=== PATIENT | male | born 1960 | race Caucasian/White ===

== ENCOUNTER 2022-05-14 18:40 | Inpatient (IN) | payer OTHER ==
[~2022-05-14] VITALS: Ht 172.7 cm; Wt 62.6 kg
[2022-05-14] MEDS ORDERED: HYDROCODONE/APAP 5/325MG TABLET PO PRN (19:00)
[2022-05-14] MEDS ORDERED: MAG HYDROX/AL HYDROX/SIMETH 30 ML UDC PO PRN (19:00)
[2022-05-14] MEDS ORDERED: ZOLPIDEM TARTRATE 5 MG TABLET PO PRN (19:00)
[2022-05-14] MEDS ORDERED: MAGNESIUM HYDROXIDE 30 ML UDC PO PRN (19:00)
[2022-05-14] MEDS ORDERED: Z GUARD REMEDY 4 OZ OINT TP PRN (19:00)
[2022-05-14] MEDS ORDERED: ONDANSETRON HCL/PF 4 MG/2 ML VIAL IVP PRN (19:00)
[2022-05-14] MEDS ORDERED: ACETAMINOPHEN 325 MG TABLET PO PRN (19:00)
--- NOTE | 2022-05-14 23:05 | NUR ---
Received patient from [facility] alert and orientated X4 noted when being asked questions he will go off on a tanget, not answering my question. He does ramble on when talking. Noted he can ambulate he has 4 bags large of medication. Counted by YENIFER Loja the charge nurse and she will take to the Pharmacy come this early AM. He has 7 pkgs of cigerettes placed in plastic and in the drawer at the nursing office he has a wheelchair and a cane cell phones and chrgers. He is cooperative and independent upper denture in the mouth snack consumed 100% Refusing IV start /Refusing DVT device
[2022-05-14 23:10] VITALS: BP 120/72
[2022-05-15 00:39] VITALS: BP 120/77
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
[2022-05-15 07:09] LABS: BASOPHILS % (AUTO) 0.5 % (0.0-2.0); EOSINOPHILS % (AUTO) 3.3 % (0.0-6.0); HEMATOCRIT 40 % (39-51); HEMOGLOBIN 13.5 g/dL (13.5-17.5); LYMPHOCYTES # (AUTO) 0.8 K/uL (0.8-4.8); LYMPHOCYTES % (AUTO) 19.6 % (20.0-44.0); MEAN CORPUSCULAR HGB CONC 34 g/dl (31.0-36.0); MEAN CORPUSCULAR VOLUME 88 fL (80-96); MONOCYTES # (AUTO) 0.4 K/uL (0.1-1.30); MONOCYTES % (AUTO) 9.9 % (2.0-12.0); NEUTROPHILS # (AUTO) 2.6 K/uL (1.8-8.9); NEUTROPHILS % (AUTO) 66.7 % (43.0-81.0); PLATELET COUNT (AUTO) 166 K/uL (150-450); WHITE BLOOD COUNT (AUTO) 3.9 K/uL (4.3-11.0)
[2022-05-15 07:21] LABS: CALCIUM, SERUM 8.9 mg/dL (8.5-10.1); CREATININE 1.2 mg/dL (0.6-1.3); MAGNESIUM 2.2 mg/dL (1.8-2.4); PHOSPHORUS 3.2 mg/dL (2.5-4.9); POTASSIUM 3.3 mmol/L (3.5-5.1)
[2022-05-15 07:33] LABS: THYROID STIMULATING HORMONE 0.568 uIU/mL (0.358-3.74)
--- NOTE | 2022-05-15 07:50 | NUR ---
RN OPENING NOTE. RECEIVED PATIENT IN BED, AWAKE AND WATCHING TELEVISION. NO RESPIRATORY DISTRESS OR SOB REPORTED OR OBSERVED. NO C/O PAIN. PATIENT DOES NOT HAVE IV ACCESS, HE REFUSED. SAFETY MEASURES IN PLACE WITH BED IN LOWEST POSITION AND LOCKED. SIDERAILS UP X2 AND CALL LIGHT WITHIN REACH. WILL CONTINUE TO MONITOR.
[2022-05-15 08:00] VITALS: BP 120/76
[2022-05-15] MEDS ORDERED: POTASSIUM CHLORIDE 20 MEQ TAB.PRT.SR PO SCH (08:00)
[2022-05-15] MEDS: PANTOPRAZOLE 40 MG TABLET.DR PO SCH (08:31)
[2022-05-15] MEDS ORDERED: MORP30TA59 PO (09:22)
[2022-05-15] MEDS ORDERED: DOCU-141 PO (09:22)
[2022-05-15] MEDS ORDERED: VENL75CA62 PO (09:22)
[2022-05-15] MEDS ORDERED: TERA2CAP4 PO (09:22)
[2022-05-15] MEDS ORDERED: DOXY100C2 PO (09:22)
[2022-05-15] MEDS ORDERED: TRAM50TA2 PO (09:22)
[2022-05-15] MEDS ORDERED: MULT-465 PO (09:22)
[2022-05-15] MEDS ORDERED: LABE100T5 PO (09:22)
[2022-05-15] MEDS ORDERED: ALBU8.5H8 IH (09:22)
[2022-05-15] MEDS ORDERED: HYDR25TA4 PO (09:22)
[2022-05-15] MEDS ORDERED: TESTOSTERONE (09:22)
[2022-05-15] MEDS ORDERED: NICO-627 TD (09:22)
[2022-05-15] MEDS ORDERED: HYDR-3980 PO (09:22)
[2022-05-15] MEDS ORDERED: POLY17PO4 PO (09:22)
[2022-05-15] MEDS ORDERED: CHOL100043 PO (09:22)
[2022-05-15] MEDS ORDERED: ATOR40TA PO (09:22)
[2022-05-15 16:00] VITALS: BP 137/81
[2022-05-15] MEDS ORDERED: TRAMADOL HCL 50 MG TABLET PO PRN (18:30)
[2022-05-15] MEDS ORDERED: ALBUTEROL FS 2.5 MG/0.5 ML VIAL.NEB IH PRN (18:30)
--- NOTE | 2022-05-15 18:55 | NUR ---
RN CLOSING NOTE PATIENT A/O X4. REMAINED IN ROOM FOR MAJORITY OF SHIFT, HOWEVER OBSERVED IN WHEELCHAIR AT NURSING STATION FOR SHORT TIME. CONTINUES TO REFUSE IV ACCESS, HOWEVER COMPLIANT WITH MEDICATION ADMINISTRATION. PATIENT OBSERVED ON SHIFT SMOKING CIGARETTE IN ASSIGNED BATHROOM. CIGARETTE AND CHANNELER WERE BOTH CONFISCATED AND PLACED WITH PATIENT BELONGINGS AT NURSING STATION. BELONGING RESEARCHED FOR OTHER SUCH ITEMS, HOWEVER NOTHING WAS FOUND. PATIENT EDUCATED ON SEVERITY OF NOT SMOKING WITHIN THE HOSPITAL. PATIENT VERBALLY STATED THAT HE UNDERSTOOD, HOWEVER STILL REMAINED AGITATED. PATIENT REQUESTED AND RECEIVED SHOWER ON SHIFT. OBSERVED SLEEPING FOR REMAINDER OF SHIFT. NO RESPIRATORY DISTRESS OR SOB OBSERVED. NO C/O PAIN. SAFETY MEASURES REMAIN IN PLACE WITH BED IN LOWEST POSITION AND LOCKED. SIDERAIL UP X2, CALL LIGHT WITHIN REACH. WILL CONTINUE TO MONITOR.
[2022-05-15 20:00] VITALS: BP 115/64
[2022-05-15] MEDS ORDERED: MORPHINE SULFATE IR 15 MG TABLET PO PRN (20:00)
[2022-05-15] MEDS: TERAZOSIN HCL 1 MG CAPSULE PO SCH (21:22)
[2022-05-15] MEDS: ATORVASTATIN 40 MG TABLET PO SCH (21:22)
[2022-05-15] MEDS: HYDROCODONE/APAP 10/325MG TABLET PO PRN (21:23)
--- NOTE | 2022-05-15 23:44 | NUR ---
MS RN OPENING NOTES: RECEIVED PATIENT AWAKE IN BED, BED IN LOW POSITION CALL LIGHTS WITHIN REACH, NO COMPLAIN OF PAIN AND DISCOMFORT AT THIS TIME, ON ROOM AIR SATURATING WELL, PATIENT IS A/OX4 AMBULATORY ABLE TO MAKE NEEDS KNOWN, PATIENT KEPT CLEAN AND DRY ALL NEEDS MET WILL CONTINUE TO MONITOR.
[2022-05-16] MEDS: HYDROCODONE/APAP 10/325MG TABLET PO PRN ×3 (06:13→21:49)
--- NOTE | 2022-05-16 06:18 | NUR ---
MS RN CLOSING NOTES: PATIENT SLEEP IN BED COMFORTABLY, BE DIN LOW POSITION CALL LIGHTS WITHIN REACH, NO COMPLAIN OF PAIN AND DISCOMFORT AT THIS TIME, ON ROOM AIR SATURATING WELL, PATIENT KEPT CLEAN AND DRY ALL NEEDS MET ENDORSE TO INCOMING SHIFT.
[2022-05-16 06:56] LABS: BASOPHILS % (AUTO) 0.3 % (0.0-2.0); EOSINOPHILS % (AUTO) 2.9 % (0.0-6.0); HEMATOCRIT 42 % (39-51); LYMPHOCYTES # (AUTO) 0.7 K/uL (0.8-4.8); LYMPHOCYTES % (AUTO) 16.1 % (20.0-44.0); MEAN CORPUSCULAR HGB CONC 34 g/dl (31.0-36.0); MEAN CORPUSCULAR VOLUME 87 fL (80-96); MONOCYTES # (AUTO) 0.4 K/uL (0.1-1.30); MONOCYTES % (AUTO) 10.2 % (2.0-12.0); NEUTROPHILS # (AUTO) 3.1 K/uL (1.8-8.9); NEUTROPHILS % (AUTO) 70.5 % (43.0-81.0); PLATELET COUNT (AUTO) 153 K/uL (150-450); RED BLOOD CELL COUNT(AUTO) 4.78 MIL/uL (4.5-6.0); WHITE BLOOD COUNT (AUTO) 4.4 K/uL (4.3-11.0)
--- NOTE | 2022-05-16 07:15 | NUR ---
RN OPENING NOTES RECEIVED PATIENT IN BED AWAKE, A/O X4, VERBALLY RESPONSIVE NO SIGNS OF ACUTE DISTRESS NOTED. ON ROOM AIR, NO SOB NOTED, BREATHING EVEN AND UNLABORED. DENIES ANY PAIN AT THIS TIME. SAFETY MEASURE IN PLACE. BED IN LOWEST AND LOCKED POSITION, SIDE RAILS UP X2, CALL LIGHT PLACED WITHIN EASY REACH. WILL CONTINUE TO MONITOR PATIENT.
[2022-05-16 07:25] LABS: CALCIUM, SERUM 8.9 mg/dL (8.5-10.1); PHOSPHORUS 2.1 mg/dL (2.5-4.9); POTASSIUM 3.8 mmol/L (3.5-5.1)
[2022-05-16 07:34] LABS: MAGNESIUM 2.1 mg/dL (1.8-2.4)
[2022-05-16] MEDS: PANTOPRAZOLE 40 MG TABLET.DR PO SCH (07:58)
[2022-05-16] MEDS: VENLAFAXINE XR 75 MG CAP.SR.24H PO SCH (08:29)
[2022-05-16] MEDS: NICOTINE PATCH (14MG) 14 MG PATCH.TD24 TD SCH (08:29)
[2022-05-16] MEDS: POLYETHYLENE GLYCOL 3350 17 GM POWD.PACK PO SCH (08:29)
[2022-05-16] MEDS: CHOLECALCIFEROL 1,000 UNIT TABLET (VIT D3) PO SCH (08:29)
[2022-05-16] MEDS: MULTIVIT W/MINERALS 1 TAB TABLET PO SCH (08:29)
[2022-05-16] MEDS: DOCUSATE SODIUM 100 MG CAPSULE PO SCH (08:29)
[2022-05-16] MEDS: MORPHINE SULFATE SR 15 MG TABLET.SA PO SCH ×3 (08:31→17:17)
[2022-05-16] MEDS: HYDROCHLOROTHIAZIDE 25 MG TABLET PO SCH (09:21)
[2022-05-16] MEDS: LABETALOL HCL (100MG) 100 MG TABLET PO SCH ×2 (09:22→17:18)
[2022-05-16] MEDS ORDERED: K PHOS NEUTRAL 250 MG TABLET PO ONE (12:00)
--- NOTE | 2022-05-16 13:20 | NUR ---
RN NOTES NEW PERIPHERAL LINE INSERTED ON RIGHT ANTECUBITAL AREA #20G, WITH GOOD BLOOD RETURN, COVERED WITH TRANSPARENT DRESSING. SALINE LOCKED.
--- NOTE | 2022-05-16 14:54 | NUR ---
TEXT DR. VAUGHAN FOR MRI APPROVAL.
[2022-05-16] MEDS ORDERED: IV NS 0.9% 250 ML IV ONE (16:36)
[2022-05-16] MEDS ORDERED: CT SWABBABLE VALVE TRANS SET 1 EA INFUS.SET MC ONE (16:36)
[2022-05-16] MEDS ORDERED: IOHEXOL-300 100 ML VIAL IV ONE (16:36)
--- NOTE | 2022-05-16 16:40 | NUR ---
RN NOTES PATIENT PICKED UP FOR CT CHEST, ABD, PELVIS.
--- NOTE | 2022-05-16 17:00 | NUR ---
RN NOTES BACK FROM CT PROCEDURE.
--- NOTE | 2022-05-16 18:49 | NUR ---
RN CLOSING NOTES PATIENT IN BED AWAKE, A/O X4, VERBALLY RESPONSIVE NO SIGNS OF ACUTE DISTRESS NOTED. REMAINS STABLE ON ROOM AIR, NO SOB NOTED, BREATHING EVEN AND UNLABORED. MEDICATED FOR PAIN ORDERED. ALL DUE MEDS GIVEN, TOLERATED WELL. IV ACCESS ON RIGHT AC #20G, INTACT AND PATENT, SALINE LOCKED. SAFETY MEASURE MAINTAINED. BED IN LOWEST AND LOCKED POSITION, SIDE RAILS UP X2, CALL LIGHT PLACED WITHIN EASY REACH. WILL ENDORSE TO NEXT SHIFT FOR CONTINUITY OF CARE.
--- NOTE | 2022-05-16 19:41 | NUR ---
MS RN OPENING NOTES: RECEIVED PATIENT SLEEP IN BED COMFORTABLY, AROUSABLE TO VERBAL STIMULI, BE DIN LOW POSITION CALL LIGHTS WITHIN REACH, ON ROOM AIR SATURATING WELL PATIENT IS A/OX4 AMBULATORY ON MONITORING, WITH IV LINE AT RAC#20SL, PATIENT KEPT CLEAN AND DRY ALL NEEDS MET WILL CONTINUE TO MONITOR.
[2022-05-16 20:00] VITALS: BP 125/50
[2022-05-16 20:55] VITALS: BP 125/50
[2022-05-16] MEDS: ATORVASTATIN 40 MG TABLET PO SCH (21:48)
[2022-05-16] MEDS: TERAZOSIN HCL 1 MG CAPSULE PO SCH (21:48)
[2022-05-17] MEDS: HYDROCODONE/APAP 10/325MG TABLET PO PRN ×2 (03:39→21:43)
--- NOTE | 2022-05-17 06:27 | NUR ---
RN CLOSING NOTES: PATIENT SLEEP IN BED COMFORTABLY, RESPONSIVE TO VERBAL STIMULI, BED IN LOW POSITION CALL LIGHTS WITHIN REACH, NO COMPLAIN OF PAIN AND DISCOMFORT AT THIS TIME, ON PAIN MANAGEMENT, ON ROOM AIR SATURATING WELL, PATIENT IS A/OX4 ABLE TO MAKE NEEDS KNOWN ON NPO, KEPT CLEAN AND DRY ALL NEEDS MET ENDORSE TO INCOMING SHIFT.
[2022-05-17 06:44] LABS: CALCIUM, SERUM 8.8 mg/dL (8.5-10.1); MAGNESIUM 1.8 mg/dL (1.8-2.4); PHOSPHORUS 3.9 mg/dL (2.5-4.9); POTASSIUM 3.2 mmol/L (3.5-5.1)
--- NOTE | 2022-05-17 07:15 | NUR ---
RN OPENING NOTES RECEIVED PATIENT IN BED AWAKE, A/O X4, VERBALLY RESPONSIVE, NO SIGNS OF ACUTE DISTRESS NOTED. ON ROOM AIR, NO SOB NOTED, BREATHING EVEN AND UNLABORED. WITH IV ACCESS ON RIGHT AC #20G, INTACT AND PATENT, SALINE LOCKED. SAFETY MEASURE MAINTAINED. BED IN LOWEST AND LOCKED POSITION, SIDE RAILS UP X2, CALL LIGHT PLACED WITHIN EASY REACH. WILL CONTINUE TO MONITOR PATIENT.
[2022-05-17 07:23] LABS: BASOPHILS % (AUTO) 0.7 % (0.0-2.0); EOSINOPHILS % (AUTO) 4.6 % (0.0-6.0); HEMATOCRIT 37 % (39-51); HEMOGLOBIN 12.6 g/dL (13.5-17.5); LYMPHOCYTES % (AUTO) 27.5 % (20.0-44.0); MEAN CORPUSCULAR HGB CONC 34 g/dl (31.0-36.0); MEAN CORPUSCULAR VOLUME 87 fL (80-96); MONOCYTES # (AUTO) 0.4 K/uL (0.1-1.30); MONOCYTES % (AUTO) 10.2 % (2.0-12.0); PLATELET COUNT (AUTO) 157 K/uL (150-450); RED BLOOD CELL COUNT(AUTO) 4.24 MIL/uL (4.5-6.0); WHITE BLOOD COUNT (AUTO) 3.5 K/uL (4.3-11.0)
[2022-05-17 08:00] VITALS: BP 108/68
[2022-05-17] MEDS: PANTOPRAZOLE 40 MG TABLET.DR PO SCH (08:31)
[2022-05-17] MEDS: POLYETHYLENE GLYCOL 3350 17 GM POWD.PACK PO SCH (08:31)
[2022-05-17] MEDS: HYDROCHLOROTHIAZIDE 25 MG TABLET PO SCH (08:32)
[2022-05-17] MEDS: VENLAFAXINE XR 75 MG CAP.SR.24H PO SCH (08:32)
[2022-05-17] MEDS: MULTIVIT W/MINERALS 1 TAB TABLET PO SCH (08:32)
[2022-05-17] MEDS: NICOTINE PATCH (14MG) 14 MG PATCH.TD24 TD SCH (08:32)
[2022-05-17] MEDS: DOCUSATE SODIUM 100 MG CAPSULE PO SCH (08:32)
[2022-05-17] MEDS: CHOLECALCIFEROL 1,000 UNIT TABLET (VIT D3) PO SCH (08:32)
[2022-05-17] MEDS: MORPHINE SULFATE SR 15 MG TABLET.SA PO SCH ×3 (08:33→17:13)
[2022-05-17] MEDS: LABETALOL HCL (100MG) 100 MG TABLET PO SCH ×2 (08:34→17:00)
--- NOTE | 2022-05-17 09:11 | NUR ---
SS consult requested for homelessness. SW will follow up at a later time.
--- NOTE | 2022-05-17 09:28 | NUR ---
RN NOTES PATIENT PICKED UP FOR MRI OF T/L SPINE VIA W/C.
[2022-05-17 10:11] LABS: IRON, SERUM 58 ug/dl (50-175); TOTAL IRON BINDING CAPACITY 351 ug/dl (250-450)
[2022-05-17 10:26] LABS: FERRITIN 135 ng/mL (8-388)
[2022-05-17] MEDS ORDERED: POTASSIUM CHLORIDE 20 MEQ TAB.PRT.SR PO SCH (12:00)
[2022-05-17] MEDS: POTASSIUM CHLORIDE 20 MEQ TAB.PRT.SR PO SCH (12:43)
--- NOTE | 2022-05-17 14:14 | NUR ---
SS consult: SS Consult requested for drug use & homelessness. The pt. is a 62-year-old male patient who was admitted for bone cancer. Upon SS consult, the pt. is Alert & Oriented x 4 and makes some eye contact. The pt. appears unkempt with depressed mood & affect. Pt. has slurred speech possibly secondary to dentures. Per pt. he states he was recently kicked out of the recuperative care in [place] because he was found with illicit drugs. Pt. stated, someone gave them to me. SW provided homeless resources and pt. accepted them. Pt. signed homeless waiver and it was paced in the pt.s chart. SW explored pt.s mental health. Pt. states he has been diagnosed with Depression in the past and is currently not on any medications. Pt. denies SI/ HI and denies hallucinations. SW explored pt.s living situation. JEAN explored pt.s mental health Hx. Patient denies any history or mental illness. JEAN explored pt.s drug & ETOH use. Pt. states he used to snort methamphetamine but has not used lately. Per pt. he has beer at times but does not feel it is a problem for him. JEAN used motivational interviewing and educated pt. on substance dependance. SW offered pt. drug rehab and he refused. Per pt. he is ambulatory and independent with all his ADLs. JEAN explored pt.s support system. Pt. states he has no support system as he lost communication with his siblings years ago and he has no children. Plan: JEAN discussed with CM who stated the insurance CM will help with finding placement for pt. JEAN provided homeless resources. Pt. signed homeless waiver and it was placed in the chart. Year-round shelters: [facility] [address] [place], [place] [phone] ; [facility] [address] [place] [address]; [facility] [id number] [facility]. [facility] [address] Hygiene: [employer] [facility]: [address] [place] ; [facility] [address] [facility] ; [facility] [address] . Food Resources: [place] [facility] at [facility]- [address]. [place]; Meet Each Need with Dignity ([employer]) [address]; [facility] [address] [facility]; [facility] [address] Mathias. Mental Health resources provided: [facility] [address] [place], [place] [address] ; [facility] [address] [facility] [address], [place], [place] [phone] ; [place] [facility] [address] [place], [place] [phone] ; [facility] [address] [place], [place] [address] Healthcare Clinics: [facility] [address] [facility], [address] [place]. [place] ; [facility] [address] [place] [address]; [facility] [address] [facility] [place] [address] [phone] Counseling--Outpatient [facility] [address], [address] [place], [place] [address] (Specializes in in-depth psychotherapy for emotional distress: anxiety, depression, interpersonal conflicts, life transitions, childhood abuse) [facility] [address] [place] [address] (Assist with solving problem marital difficulties, separation & divorce, aging parents, & grief, chronic & terminal illness) [facility] [address] [place] [address] (Deal with loss & grief, anxiety, marital difficulties) Homebound/Mental Health Services [address], [address] [place], [place] [address] (Provide in-home mental services to people who are incapable of leaving their homes) [facility] Elder[facility] Senior Service/[facility] [address] [place] [address] [facility] [address] [place] [address] PSYCHIATRIC OUTPATIENT SERVICES [facility] Partial Hospitalization and Intensive Outpatient Program (Managed Care and Guzmán Only)[address] [facility] [phone] [facility] Partial Hospitalization and Outpatient [address] [place], [place] [phone] [facility] Mental Health [place] Mwm[address] [address] [facility] [address] [place], [place] [phone] [facility] Partial Hospitalization and Outpatient Lpeltsc[address] eliThe Sheppard & Enoch Pratt HospitalesperanzaGALLANT, [phone] Substance Abuse resources provided included: [facility] Substance Abuse Self-Helpline ([facility]) ; [facility] [address] [facility]. [place] [phone] ; [facility] [address] [facility] [address] ; [facility] Rehabilitation Program [address] [facility] [phone] ; [facility] [address] [facility] [phone] ; [facility] Treatment [facility] [address] [facility] [address] ; [facility] [address] [facility] [phone] ; [facility] Substance Abuse Helpline(SAS[facility] ; [facility] ; [facility] [place]; [facility] [place]; [facility] [place]; [facility] Petr Chuy; [facility]; [facility] [place]; [facility]; [facility], [facility]. [facility] Dh[place]; Alcoholics Anonymous -[facility]; Arun ; Marijuana Anonymous -[facility]; Narcotics Anonymous www.na.org;
[2022-05-17] MEDS ORDERED: GADOTERATE MEGLUMINE 5 MMOL/10 ML VIAL IV ONE (14:54)
[2022-05-17 16:00] VITALS: BP 100/54
--- NOTE | 2022-05-17 18:53 | NUR ---
RN CLOSING NOTES PATIENT IN BED AWAKE, A/O X4, VERBALLY RESPONSIVE NO SIGNS OF ACUTE DISTRESS NOTED. REMAINS STABLE ON ROOM AIR, NO SOB NOTED, BREATHING EVEN AND UNLABORED. ALL DUE MEDS GIVEN, TOLERATED WELL. IV ACCESS ON RIGHT AC #20G, INTACT AND PATENT, SALINE LOCKED. SAFETY MEASURE MAINTAINED. BED IN LOWEST AND LOCKED POSITION, SIDE RAILS UP X2, CALL LIGHT PLACED WITHIN EASY REACH. WILL ENDORSE TO NEXT SHIFT FOR CONTINUITY OF CARE.
[2022-05-17 19:21] LABS: BILIRUBIN,URINE NEGATIVE (NEGATIVE); COLOR,URINE YELLOW (YELLOW); LEUKOCYTE ESTERASE ,URINE NEGATIVE (NEGATIVE); NITRITE, URINE NEGATIVE (NEGATIVE); PH,URINE 5.5 (5.0-8.0); PROTEIN,URINE NEGATIVE (NEGATIVE); UGLUCOSE NEGATIVE (NEGATIVE); UROBILINOGEN,URINE 0.2 EU/dL (0.2)
[2022-05-17 20:00] VITALS: BP 126/75
[2022-05-17] MEDS: ATORVASTATIN 40 MG TABLET PO SCH (21:24)
[2022-05-17] MEDS: TERAZOSIN HCL 1 MG CAPSULE PO SCH (21:24)
--- NOTE | 2022-05-17 21:43 | NUR ---
MS STREET NOTES C/O BACK PAIN 10/325MG,1 TAB PO ORDERED FOR PAIN 07/17.WILL CONTINUE TO MONITOR FOR RELIEF. Addendum: 05/18/22 at 0637 by THOMAS CONWAY RN NORCO 10/325MG,1 TAB PO GIVEN
--- NOTE | 2022-05-18 06:37 | NUR ---
MS RN NOTES PAIN MANAGEMENT EFFECTIVE,BACK PAIN IMPROVED,NO DISTRESS,CALL LIGHT IN REACH,NEEDS ATTENDED.
[2022-05-18 06:44] LABS: BASOPHILS % (AUTO) 0.6 % (0.0-2.0); EOSINOPHILS % (AUTO) 5.6 % (0.0-6.0); HEMATOCRIT 37 % (39-51); HEMOGLOBIN 12.5 g/dL (13.5-17.5); LYMPHOCYTES # (AUTO) 0.8 K/uL (0.8-4.8); LYMPHOCYTES % (AUTO) 22.9 % (20.0-44.0); MEAN CORPUSCULAR HGB CONC 34 g/dl (31.0-36.0); MEAN CORPUSCULAR VOLUME 87 fL (80-96); MONOCYTES # (AUTO) 0.4 K/uL (0.1-1.30); MONOCYTES % (AUTO) 10.1 % (2.0-12.0); NEUTROPHILS # (AUTO) 2.2 K/uL (1.8-8.9); NEUTROPHILS % (AUTO) 60.8 % (43.0-81.0); PLATELET COUNT (AUTO) 156 K/uL (150-450); RED BLOOD CELL COUNT(AUTO) 4.23 MIL/uL (4.5-6.0); WHITE BLOOD COUNT (AUTO) 3.6 K/uL (4.3-11.0)
[2022-05-18 06:49] LABS: CALCIUM, SERUM 8.7 mg/dL (8.5-10.1); MAGNESIUM 1.7 mg/dL (1.8-2.4); PHOSPHORUS 3.8 mg/dL (2.5-4.9); POTASSIUM 4.1 mmol/L (3.5-5.1)
--- NOTE | 2022-05-18 07:10 | NUR ---
MS RN CLOSING NOTE: PATIENT IN BED AWAKE, A/O X4, VERBALLY RESPONSIVE NO SIGNS OF ACUTE DISTRESS NOTED. REMAINS STABLE ON ROOM AIR, NO SOB NOTED, BREATHING EVEN AND UNLABORED. ALL DUE MEDS GIVEN, TOLERATED WELL. IV ACCESS ON RIGHT AC #20G, INTACT AND PATENT, SALINE LOCKED. SAFETY MEASURE MAINTAINED. BED IN LOWEST AND LOCKED POSITION, SIDE RAILS UP X2, CALL LIGHT PLACED WITHIN EASY REACH. WILL ENDORSE TO NEXT SHIFT FOR CONTINUITY OF CARE. Addendum: 05/18/22 at 1022 by SHOAIB MICHELLE RN MS RN OPENING NOTE: 1ST ENTRY INCORRECT. SEE CORRECT NOTE BELOW: RECEIVED PATIENT IN BED AWAKE, A/O X4, ON ROOM AIR, NO SIGNS OF ACUTE RESPIRATORY DISTRESS. BREATHING EVEN AND UNLABORED. ABLE TO MAKE NEEDS KNOWN. PT. HAS IV ACCESS ON RIGHT AC #20G, INTACT AND FLUSHING WELL WITH NO SIGNS OF INFECTION OR INFILTRATION, SALINE LOCKED. SAFETY MEASURE IN PLACE: BED IN LOWEST AND LOCKED POSITION, SIDE RAILS UP X2, CALL LIGHT AND BELONGINGS PLACED WITHIN EASY REACH. WILL CONTINUE TO MONITOR.
[2022-05-18] MEDS: PANTOPRAZOLE 40 MG TABLET.DR PO SCH (07:47)
[2022-05-18 08:00] VITALS: BP 122/71
[2022-05-18] MEDS: NICOTINE PATCH (14MG) 14 MG PATCH.TD24 TD SCH (08:19)
[2022-05-18] MEDS: POLYETHYLENE GLYCOL 3350 17 GM POWD.PACK PO SCH (08:19)
[2022-05-18] MEDS: POTASSIUM CHLORIDE 20 MEQ TAB.PRT.SR PO SCH (08:20)
[2022-05-18] MEDS: DOCUSATE SODIUM 100 MG CAPSULE PO SCH (08:22)
[2022-05-18] MEDS: HYDROCHLOROTHIAZIDE 25 MG TABLET PO SCH (08:23)
[2022-05-18] MEDS: MORPHINE SULFATE SR 15 MG TABLET.SA PO SCH ×3 (08:23→16:51)
[2022-05-18] MEDS: CHOLECALCIFEROL 1,000 UNIT TABLET (VIT D3) PO SCH (08:23)
[2022-05-18] MEDS: VENLAFAXINE XR 75 MG CAP.SR.24H PO SCH (08:24)
[2022-05-18] MEDS: MULTIVIT W/MINERALS 1 TAB TABLET PO SCH (08:24)
[2022-05-18] MEDS: LABETALOL HCL (100MG) 100 MG TABLET PO SCH ×2 (08:24→16:58)
[2022-05-18] MEDS ORDERED: MAGNESIUM OXIDE 400 MG TABLET PO ONE (10:00)
[2022-05-18 10:08] LABS: IMMUNOGLOBULIN A, SERUM 365 mg/dL (61-437); IMMUNOGLOBULIN G, SERUM 1387 mg/dL (603-1613); IMMUNOGLOBULIN M, SERUM 83 mg/dL (20-172)
[2022-05-18 11:07] LABS: *SPE A/G RATIO 0.8 (0.7-1.7); *SPE ALPHA-1-GLOBULIN 0.3 g/dL (0.0-0.4); *SPE BETA GLOBULIN 1.1 g/dL (0.7-1.3); *SPE M-SPIKE Not Observed g/dL (Not Observed)
[2022-05-18 12:00] VITALS: BP 126/72
--- NOTE | 2022-05-18 14:29 | NUR ---
MS RN NOTE: FAX[facility] RE[facility] FOR PATHOLOGY AND [facility]/DR. SEVERO ZEPEDA (ADDRESSED TO [facility]) PHONE: ; FAX: PER .GEORGINA DAVIS NP'S REQUEST. FAX CONFIRMATION PRINTED. WILL WAIT FOR REQUESTED DOCUMENTS AND WILL UPDATE DAGOBERTO DAVIS AND/OR DR. NIETO ONCE RECEIVED.
[2022-05-18 16:12] VITALS: BP 115/56
[2022-05-18] MEDS: ENSURE ENLIVE CHOC 237 ML CAN PO SCH (17:00)
--- NOTE | 2022-05-18 19:05 | NUR ---
RN NOTES: RECEIVED AWAKE ON BED, A/OX2-3, GIVEN INSTRUCTION REGARDING HIS SMOKING TIME,ORIENTED TO UNIT AND STAFF, KEPT CALL LIGHT WITHIN EASY REACH, ON ROOM AIR , NON LABORED BREATHING, ABLE TO AMBULATE USING WHEELCHAIR, RAC G#20 SL INTACT AND PATENT, STILL PENDING FOR OFB, AWAITING FOR HIS SNF PLACEMENT PER ENDORSEMENT. -FALL AND SAFETY PRECAUTION OBSERVED, ON CLOSE WATCH.
--- NOTE | 2022-05-18 19:12 | NUR ---
MS RN CLOSING NOTE: PATIENT REMAINS IN BED, AWAKE, WATCHING TV, A/O X4, ON ROOM AIR, BREATHING EVEN AND UNLABORED. ABLE TO VERBALIZE SIMPLE NEEDS KNOWN. PT. HAS IV ACCESS ON RIGHT AC #20G, SALINE LOCKED, PATENT AND FLUSHING WELL WITH NO REDNESS, INFLAMMATION OR SIGNS OF INFILTRATION ON SITE. STILL HAVEN'T RECEIVED PATHOLOGY & MEDICAL RECORDS FROM PT.'S PRIMARY ONCOLOGIST, DR. ZEPEDA. FAXED REQUEST RECEIVED BY DR. ZEPEDA'S OFFICE STAFF ARAVIND CONFIRMED OVER THE PHONE. SAFETY PRECAUTIONS MAINTAINED: BED IN LOWEST AND LOCKED POSITION, SIDE RAILS UP X2, CALL LIGHT AND BELONGINGS PLACED WITHIN EASY REACH. WILL ENDORSE CONTINUITY OF CARE TO WEIR FISHER RN.
[2022-05-18 20:00] VITALS: BP 104/62
--- NOTE | 2022-05-18 20:45 | NUR ---
RN NOTES: -ACCOMPANIED BY CONSTRUCTION MANAGER TO SMOKE OUTSIDE.NEEDS ATTENDED.
[2022-05-18] MEDS: TERAZOSIN HCL 1 MG CAPSULE PO SCH (21:32)
[2022-05-18] MEDS: ATORVASTATIN 40 MG TABLET PO SCH (21:32)
[2022-05-18] MEDS: HYDROCODONE/APAP 10/325MG TABLET PO PRN (22:07)
--- NOTE | 2022-05-18 22:08 | NUR ---
RN NOTES: COMPLAINED OF GENERALIZED PAIN 10/10, ASKING FOR PAIN MEDICATION TABLET, GIVEN, NON PHARMACOLOGIC INTERVENTION RENDERED, WARM BLANKET AND DIM LIT THE ROOM.
--- NOTE | 2022-05-18 23:50 | NUR ---
RN NOTES: -ABLE TO SLEEP AND REST, KEPT CALL LIGHT WITHIN EASYR EACH, CHECK AT SHORT INTERVALS.
--- NOTE | 2022-05-19 07:02 | NUR ---
RN NOTES: -COOPERATIVE TO CARE, CONVERSANT, SLEEP WELL IN THE NIGHT. -AFEBRILE,FECAL OCCULT WAS CANCELLED, ENDORSED TO F/U RECORDS TO OFFICE, FAXED YESTERDAY, F/U WITH CM FOR PLACEMENT, FOR PT EVAL, NO OTHER COMPLAINTS, ENDORSED FOR CONTINUITY OF CARE.
--- NOTE | 2022-05-19 07:18 | NUR ---
MS RN OPENING NOTE RECEIVED PATIENT IN BED, A/O X4. ON ROOM AIR, WITH EQUAL AND UNLABORED BREATHING. ABLE TO VERBALIZE NEEDS KNOWN. PT. HAVE IV ACCESS ON RIGHT AC #20G, ON SALINE LOCK, PATENT AND FLUSHING WELL. PATIENT ON CHRONIC PAIN MANAGEMENT RELATED TO BACK PAIN. SAFETY PRECAUTIONS MAINTAINED: BED IN LOWEST AND LOCKED POSITION, SIDE RAILS UP X2, CALL LIGHT WITHIN EASY REACH. WILL CONTINUE TO MONITOR PATIENT.
[2022-05-19] MEDS: PANTOPRAZOLE 40 MG TABLET.DR PO SCH (07:30)
[2022-05-19 08:00] VITALS: BP 121/72
[2022-05-19] MEDS: ENSURE ENLIVE CHOC 237 ML CAN PO SCH ×2 (08:00→17:00)
[2022-05-19] MEDS: DOCUSATE SODIUM 100 MG CAPSULE PO SCH (08:42)
[2022-05-19] MEDS: MULTIVIT W/MINERALS 1 TAB TABLET PO SCH (08:43)
[2022-05-19] MEDS: VENLAFAXINE XR 75 MG CAP.SR.24H PO SCH (08:43)
[2022-05-19] MEDS: MORPHINE SULFATE SR 15 MG TABLET.SA PO SCH ×3 (08:43→17:37)
[2022-05-19] MEDS: POTASSIUM CHLORIDE 20 MEQ TAB.PRT.SR PO SCH (08:43)
[2022-05-19] MEDS: CHOLECALCIFEROL 1,000 UNIT TABLET (VIT D3) PO SCH (08:44)
[2022-05-19] MEDS: LABETALOL HCL (100MG) 100 MG TABLET PO SCH ×2 (08:44→17:38)
[2022-05-19] MEDS: HYDROCHLOROTHIAZIDE 25 MG TABLET PO SCH (08:45)
[2022-05-19] MEDS: NICOTINE PATCH (14MG) 14 MG PATCH.TD24 TD SCH (08:45)
[2022-05-19] MEDS: POLYETHYLENE GLYCOL 3350 17 GM POWD.PACK PO SCH (08:45)
--- NOTE | 2022-05-19 09:50 | NUR ---
MS RN NOTE SEEN BY DR. JENNINGS. IN STABLE CONDITION.
[2022-05-19 16:00] VITALS: BP 127/61
--- NOTE | 2022-05-19 19:05 | NUR ---
MS RN CLOSING NOTE PATIENT IN BED, A/O X4. ON ROOM AIR, WITH EQUAL AND UNLABORED BREATHING. ABLE TO VERBALIZE NEEDS KNOWN. PT. HAVE IV ACCESS ON RIGHT AC #20G, ON SALINE LOCK, PATENT AND FLUSHING WELL. PATIENT ON CHRONIC PAIN MANAGEMENT RELATED TO BACK PAIN. SAFETY PRECAUTIONS MAINTAINED: BED IN LOWEST AND LOCKED POSITION, SIDE RAILS UP X2, CALL LIGHT WITHIN EASY REACH. ENDORSED PATIENT TO NEXT SHIFT FOR CONTINUITY OF CARE.
--- NOTE | 2022-05-19 20:20 | NUR ---
MS RN OPENING NOTE RECEIVED PATIENT IN BED, A/O X4. ON ROOM AIR,NO SIGN SOB/DISTRESS NOTED.BREATHING EVEN AND UNLABORED.HAVE IV ACCESS ON RIGHT AC #20G, ON SALINE LOCK, PATENT AND FLUSHING WELL.NO COMPLAINE OF PAIN AT THIS TIME.SAFETY PRECAUTIONS MAINTAINED: BED IN LOWEST AND LOCKED POSITION, SIDE RAILS UP X2, CALL LIGHT WITHIN EASY REACH. WILL CONTINUE TO MONITOR.
[2022-05-19] MEDS ORDERED: PROPOFOL 100 ML ONE (21:14)
[2022-05-19] MEDS: ATORVASTATIN 40 MG TABLET PO SCH (21:26)
[2022-05-19] MEDS: TERAZOSIN HCL 1 MG CAPSULE PO SCH (21:28)
--- NOTE | 2022-05-19 22:15 | NUR ---
RN NOTES PT COMPLAINED OF GEN.BODY PAIN 06/16.PRN NORCO 10/325MG WAS GIVEN.
[2022-05-19] MEDS: HYDROCODONE/APAP 10/325MG TABLET PO PRN (22:19)
[2022-05-19 23:05] VITALS: BP 127/79
--- NOTE | 2022-05-20 06:30 | NUR ---
MS RN CLOSING NOTES. PATIENT IN BED,A A/O X4. ON ROOM AIR,NO SIGN SOB/DISTRESS NOTED.BREATHING EVEN AND UNLABORED.HAVE IV ACCESS ON RIGHT AC #20G, ON SALINE LOCK, PATENT AND FLUSHING WELL.SAFETY PRECAUTIONS MAINTAINED: BED IN LOWEST AND LOCKED POSITION, SIDE RAILS UP X2, CALL LIGHT WITHIN EASY REACH. WILL ENDORSED TO NEXT SHIFT.
--- NOTE | 2022-05-20 07:19 | NUR ---
MS RN OPENING NOTE RECEIVED PATIENT IN BED, A/O X4. ON ROOM AIR, WITH EQUAL AND UNLABORED BREATHING. ABLE TO VERBALIZE NEEDS. PATIENT WITH IV ACCESS ON RIGHT AC #20G, ON SALINE LOCK, PATENT AND FLUSHING WELL. PATIENT ON CHRONIC PAIN MANAGEMENT RELATED TO BACK PAIN. SAFETY PRECAUTIONS MAINTAINED: BED IN LOWEST AND LOCKED POSITION, SIDE RAILS UP X2, CALL LIGHT WITHIN EASY REACH. WILL CONTINUE TO MONITOR PATIENT.
[2022-05-20] MEDS: PANTOPRAZOLE 40 MG TABLET.DR PO SCH ×2 (07:56→08:33)
[2022-05-20 08:00] VITALS: BP 130/73
[2022-05-20] MEDS: POTASSIUM CHLORIDE 20 MEQ TAB.PRT.SR PO SCH (08:32)
[2022-05-20] MEDS: ENSURE ENLIVE CHOC 237 ML CAN PO SCH ×2 (08:32→17:32)
[2022-05-20] MEDS: VENLAFAXINE XR 75 MG CAP.SR.24H PO SCH (08:33)
[2022-05-20] MEDS: DOCUSATE SODIUM 100 MG CAPSULE PO SCH (08:33)
[2022-05-20] MEDS: CHOLECALCIFEROL 1,000 UNIT TABLET (VIT D3) PO SCH (08:33)
[2022-05-20] MEDS: POLYETHYLENE GLYCOL 3350 17 GM POWD.PACK PO SCH (08:34)
[2022-05-20] MEDS: HYDROCHLOROTHIAZIDE 25 MG TABLET PO SCH (08:34)
[2022-05-20] MEDS: LABETALOL HCL (100MG) 100 MG TABLET PO SCH ×2 (08:34→17:32)
[2022-05-20] MEDS: MULTIVIT W/MINERALS 1 TAB TABLET PO SCH (08:34)
[2022-05-20] MEDS: MORPHINE SULFATE SR 15 MG TABLET.SA PO SCH ×3 (08:34→17:31)
--- NOTE | 2022-05-20 10:30 | NUR ---
MS RN NOTE SEEN BY DR. FREIRE IN STABLE CONDITION.
[2022-05-20] MEDS: NICOTINE PATCH (14MG) 14 MG PATCH.TD24 TD SCH (10:39)
--- NOTE | 2022-05-20 10:48 | NUR ---
MS RN NOTE HOSPITALIST RAD NOTIFIED PATIENT STILL SMOKES AT LEAST 4X A DAY, STILL TO GIVE NICOTINE PATCH PER ROLLER HELPER. IN STABLE CONDITION.
[2022-05-20 16:14] VITALS: BP 126/83
--- NOTE | 2022-05-20 17:04 | NUR ---
MS RN NOTE WITH INFILTRATED IVF, IV ACCESS REMOVED AND COVERED WITH DRY DRESSING. PROCEDURE TOLERATED WELL. PATIENT REFUSED TO HAVE IV ACCESS REINSERTED.
--- NOTE | 2022-05-20 19:00 | NUR ---
MS RN CLOSING NOTE PATIENT IN BED, A/O X4. ON ROOM AIR, WITH EQUAL AND UNLABORED BREATHING. ABLE TO VERBALIZE NEEDS. PATIENT REFUSED IV REINSERTION. PATIENT ON CHRONIC PAIN MANAGEMENT RELATED TO BACK PAIN. SAFETY PRECAUTIONS MAINTAINED: BED IN LOWEST AND LOCKED POSITION, SIDE RAILS UP X2, CALL LIGHT WITHIN EASY REACH. ENDORSED TO NEXT SHIFT FOR CONTINUITY OF CARE.
[2022-05-20 20:00] VITALS: BP 128/70
[2022-05-20] MEDS: ATORVASTATIN 40 MG TABLET PO SCH (21:14)
[2022-05-20] MEDS: TERAZOSIN HCL 1 MG CAPSULE PO SCH (21:15)
[2022-05-20] MEDS: HYDROCODONE/APAP 10/325MG TABLET PO PRN (21:58)
--- NOTE | 2022-05-20 22:00 | NUR ---
RN NOTES PT COMPLAINED OF GEN,BODY PAIN 8/10.PRN NORCO 10/325MG PO WAS GIVEN.
[2022-05-21 01:25] VITALS: BP 128/70
--- NOTE | 2022-05-21 06:47 | NUR ---
MS RN CLOSING NOTES. PATIENT IN BED,A A/O X4. ON ROOM AIR,NO SIGN SOB/DISTRESS NOTED.BREATHING EVEN AND UNLABORED.PT REFUSED TO REINSERT IVF.ALL MEDS GIVEN PO ORDERED.PATENT AND FLUSHING WELL.SAFETY PRECAUTIONS MAINTAINED: BED IN LOWEST AND LOCKED POSITION, SIDE RAILS UP X2, CALL LIGHT WITHIN EASY REACH. WILL ENDORSED TO NEXT SHIFT.
--- NOTE | 2022-05-21 07:00 | NUR ---
MS RN OPENING NOTES PATIENT LAYING IN BED, A/O X 4, ABLE TO MAKE NEEDS KNOWN. TOLERATING WELL ON ROOM AIR WITH NO S/S RESPIRATORY DISTRESS. NO IV ACCESS AT THIS TIME, MD AWARE. SAFETY MEASURES IN PLACE: BED IN LOWEST LOCKED POSITION, SIDE RAILS UP X 2, CALL LIGHT WITHIN REACH. WILL CONTINUE TO MONITOR.
[2022-05-21] MEDS: ENSURE ENLIVE CHOC 237 ML CAN PO SCH ×2 (07:42→16:11)
[2022-05-21 08:00] VITALS: BP 121/75
[2022-05-21] MEDS: LABETALOL HCL (100MG) 100 MG TABLET PO SCH ×2 (08:29→16:10)
[2022-05-21] MEDS: HYDROCHLOROTHIAZIDE 25 MG TABLET PO SCH (08:29)
[2022-05-21] MEDS: DOCUSATE SODIUM 100 MG CAPSULE PO SCH (08:30)
[2022-05-21] MEDS: MULTIVIT W/MINERALS 1 TAB TABLET PO SCH (08:31)
[2022-05-21] MEDS: POTASSIUM CHLORIDE 20 MEQ TAB.PRT.SR PO SCH (08:31)
[2022-05-21] MEDS: MORPHINE SULFATE SR 15 MG TABLET.SA PO SCH ×3 (08:31→16:14)
[2022-05-21] MEDS: NICOTINE PATCH (14MG) 14 MG PATCH.TD24 TD SCH (08:32)
[2022-05-21] MEDS: VENLAFAXINE XR 75 MG CAP.SR.24H PO SCH (08:32)
[2022-05-21] MEDS: POLYETHYLENE GLYCOL 3350 17 GM POWD.PACK PO SCH ×2 (08:32→08:39)
[2022-05-21] MEDS: CHOLECALCIFEROL 1,000 UNIT TABLET (VIT D3) PO SCH (08:33)
[2022-05-21 16:00] VITALS: BP 105/56
--- NOTE | 2022-05-21 18:31 | NUR ---
MS RN CLOSING NOTES PATIENT LAYING IN BED, A/O X 4, ABLE TO MAKE NEEDS KNOWN. TOLERATING WELL ON ROOM AIR WITH NO S/S RESPIRATORY DISTRESS. NO IV ACCESS AT THIS TIME, MD AWARE. SAFETY MEASURES IN PLACE: BED IN LOWEST LOCKED POSITION, SIDE RAILS UP X 2, CALL LIGHT WITHIN REACH. ALL NEEDS MET. WILL ENDORSE TO SEARCH MARKETING ANALYST FOR MONIQUE.
[2022-05-21 20:00] VITALS: BP 105/69
--- NOTE | 2022-05-21 20:34 | NUR ---
MS/TELE/RN AT INITIAL SHIFT ROUND, PATIENT WAS IN BED AWAKE, ALERT, ORIENTED, NO DISTRESS NOTED, CALL LIGHT IN REACH, WILL MONITOR.
[2022-05-21] MEDS: TERAZOSIN HCL 1 MG CAPSULE PO SCH (21:26)
[2022-05-21] MEDS: ATORVASTATIN 40 MG TABLET PO SCH (21:26)
[2022-05-21] MEDS: HYDROCODONE/APAP 10/325MG TABLET PO PRN (21:29)
--- NOTE | 2022-05-22 06:09 | NUR ---
MS/TELE/RN PATIENT IS STILL SLEEPING, APPEARS COMFORTABLE, NO SIGNS OF DISTRESS NOTED, CALL LIGHT IN REACH, ALL NEEDS ATTENDED AT THIS TIME, WILL CONTINUE TO MONITOR.
[2022-05-22] MEDS: HYDROCODONE/APAP 10/325MG TABLET PO PRN ×2 (06:27→22:11)
[2022-05-22] MEDS: PANTOPRAZOLE 40 MG TABLET.DR PO SCH (07:41)
[2022-05-22] MEDS: ENSURE ENLIVE CHOC 237 ML CAN PO SCH ×2 (07:49→17:42)
[2022-05-22 08:00] VITALS: BP 119/71
[2022-05-22] MEDS: DOCUSATE SODIUM 100 MG CAPSULE PO SCH ×2 (09:00→09:35)
[2022-05-22] MEDS: POLYETHYLENE GLYCOL 3350 17 GM POWD.PACK PO SCH ×2 (09:00→09:33)
[2022-05-22] MEDS: NICOTINE PATCH (14MG) 14 MG PATCH.TD24 TD SCH (09:33)
[2022-05-22] MEDS: MORPHINE SULFATE SR 15 MG TABLET.SA PO SCH ×3 (09:33→17:42)
[2022-05-22] MEDS: POTASSIUM CHLORIDE 20 MEQ TAB.PRT.SR PO SCH (09:34)
[2022-05-22] MEDS: CHOLECALCIFEROL 1,000 UNIT TABLET (VIT D3) PO SCH (09:34)
[2022-05-22] MEDS: LABETALOL HCL (100MG) 100 MG TABLET PO SCH ×2 (09:35→17:00)
[2022-05-22] MEDS: VENLAFAXINE XR 75 MG CAP.SR.24H PO SCH (09:36)
[2022-05-22] MEDS: HYDROCHLOROTHIAZIDE 25 MG TABLET PO SCH (09:42)
[2022-05-22] MEDS: MULTIVIT W/MINERALS 1 TAB TABLET PO SCH (09:45)
[2022-05-22 16:00] VITALS: BP 109/50
--- NOTE | 2022-05-22 19:00 | NUR ---
MS RN CLOSING NOTES PATIENT LAYING IN BED, A/O X 4, ABLE TO MAKE NEEDS KNOWN. TOLERATING WELL ON ROOM AIR WITH NO S/S RESPIRATORY DISTRESS. NO IV ACCESS AT THIS TIME, MD AWARE. SAFETY MEASURES IN PLACE: BED IN LOWEST LOCKED POSITION, SIDE RAILS UP X 2, CALL LIGHT WITHIN REACH. ALL NEEDS MET. WILL ENDORSE TO WASH WORKER FOR MONIQUE.
--- NOTE | 2022-05-22 19:30 | NUR ---
MS RN NOTES RECEIVED LAYING ON BED A/O X4,BREATHING REGULAR.NOT IN ANY FORM OF DISTRESS.AMBULATE WITH WALKER,NO IV ACCESS,MD AWARE,TAKING PO PILL FOR PAIN MANAGEMENT,DENIES ABDOMINAL PAIN AT THE MOMENT.CALL LIGHT IN REACH,NEEDS ANTICIPATED.
[2022-05-22 20:00] VITALS: BP 129/81
--- NOTE | 2022-05-22 20:45 | NUR ---
MS STREET NOTES PAIN MANAGEMENT C/O PAIN / ON PAIN SCALE,ON LEFT LEG,MOANS,RESTLESS,MEDICATED WITH MORPHINE 2MG IV ORDERED.VITAL SIGNS STABLE. Addendum: 05/23/22 at 0023 by THOMAS CONWAY RN WRONG ENTRY OF NOTES,NOT FOR THIS PATIENT
[2022-05-22] MEDS: TERAZOSIN HCL 1 MG CAPSULE PO SCH (21:57)
[2022-05-22] MEDS: ATORVASTATIN 40 MG TABLET PO SCH (21:57)
--- NOTE | 2022-05-22 22:11 | NUR ---
MS RN NOTES C/O ABDOMINAL PAIN 8/10 ON PAIN SCALE,NORCO 10/325MG 1 TAB PO GIVEN ORDERED.VITAL SIGNS STABLE.
--- NOTE | 2022-05-23 06:35 | NUR ---
MS RN NOTES SLEEP WELL AT NIGHT,BACK PAIN IMPROVED WITH NORCO,NO FALL,NO INJURY.CALL LIGHT IN REACH,NEEDS ATTENDED.
[2022-05-23] MEDS: PANTOPRAZOLE 40 MG TABLET.DR PO SCH (07:25)
[2022-05-23] MEDS: ENSURE ENLIVE CHOC 237 ML CAN PO SCH ×2 (07:26→16:16)
[2022-05-23] MEDS: POLYETHYLENE GLYCOL 3350 17 GM POWD.PACK PO SCH ×2 (09:00→09:07)
[2022-05-23] MEDS: VENLAFAXINE XR 75 MG CAP.SR.24H PO SCH ×2 (09:00→09:05)
[2022-05-23] MEDS: LABETALOL HCL (100MG) 100 MG TABLET PO SCH ×4 (09:00→16:22)
[2022-05-23] MEDS: NICOTINE PATCH (14MG) 14 MG PATCH.TD24 TD SCH (09:05)
[2022-05-23] MEDS: MULTIVIT W/MINERALS 1 TAB TABLET PO SCH (09:06)
[2022-05-23] MEDS: MORPHINE SULFATE SR 15 MG TABLET.SA PO SCH ×3 (09:07→16:16)
[2022-05-23] MEDS: CHOLECALCIFEROL 1,000 UNIT TABLET (VIT D3) PO SCH (09:07)
[2022-05-23] MEDS: POTASSIUM CHLORIDE 20 MEQ TAB.PRT.SR PO SCH (09:07)
[2022-05-23] MEDS: HYDROCHLOROTHIAZIDE 25 MG TABLET PO SCH (09:08)
[2022-05-23] MEDS: DOCUSATE SODIUM 100 MG CAPSULE PO SCH (09:09)
--- NOTE | 2022-05-23 19:00 | NUR ---
MS RN CLOSING NOTES PATIENT LAYING IN BED, A/O X 4, ABLE TO MAKE NEEDS KNOWN. TOLERATING WELL ON ROOM AIR WITH NO S/S RESPIRATORY DISTRESS. NO COMPLAINTS OF PAIN OR DISCOMFORT AT THIS TIME. NO IV ACCESS AT THIS TIME, MD AWARE. SAFETY MEASURES IN PLACE: BED IN LOWEST LOCKED POSITION, SIDE RAILS UP X 2, CALL LIGHT WITHIN REACH. ALL NEEDS MET. WILL ENDORSE TO STOCK SUPERVISOR FOR MONIQUE.
[2022-05-23] MEDS: HYDROCODONE/APAP 10/325MG TABLET PO PRN (19:49)
[2022-05-23 20:00] VITALS: BP 129/80
--- NOTE | 2022-05-23 20:00 | NUR ---
MS RN OPENING NOTE PATIENT AWAKE IN BED, ALERT/ORIENTED X 4, PT ABLE TO MAKE NEEDS KNOWN. PATIENT STABLE ON RA, NO S/S OF DISTRESS OR SOB NOTED, BREATHING EVEN AND UNLABORED. PATIENT C/O 8/10 BACK PAIN, NORCO 10-325 MG PO GIVEN ORDERED. NO IV ACCESS NOTED, MD AWARE PER DAY SHIFT NURSE. SAFETY MEASURES IN PLACE: CALL LIGHT WITHIN REACH, SIDE RAILS UP X 2, BED LOCKED IN LOWEST POSITION, PATIENT AMBULATORY WITH CANE AND WHEELCHAIR, PT HAS SMOKING PRIVILEGES WITH SUPER VISION PER DAY SHIFT NURSE. WILL CONTINUE TO MONITOR
[2022-05-23] MEDS: TERAZOSIN HCL 1 MG CAPSULE PO SCH (22:11)
[2022-05-23] MEDS: ATORVASTATIN 40 MG TABLET PO SCH (22:11)
--- NOTE | 2022-05-24 06:54 | NUR ---
MS RN CLOSING NOTE PATIENT AWAKE, ALERT/ORIENTED X 4, PT ABLE TO MAKE NEEDS KNOWN. PATIENT STABLE ON RA, NO S/S OF DISTRESS OR SOB NOTED, BREATHING EVEN AND UNLABORED. NO IV ACCESS NOTED, MD AWARE PER DAY SHIFT NURSE. MEDICATIONS GIVEN ORDERED, PT NEEDS MET THROUGHOUT SHIFT. PATIENT TOOK SHOWER LAST NIGHT, OBTAINED ORDER FROM HORSE SHOW JUDGE MD FOR OK TO SHOWER. SAFETY MEASURES IN PLACE: CALL LIGHT WITHIN REACH, SIDE RAILS UP X 2, BED LOCKED IN LOWEST POSITION, PATIENT AMBULATORY WITH CANE AND WHEELCHAIR, PT HAS SMOKING PRIVILEGES WITH SUPER [employer]ISION PER DAY SHIFT NURSE. WILL ENDORSE TO DAY SHIFT NURSE FOR CONTINUITY OF CARE
--- NOTE | 2022-05-24 07:13 | NUR ---
MS RN OPENING NOTES RECEIVED PATIENT AWAKE IN BED. PATIENT IS ALERT AND ORIENTED TIMES 4. NO PAIN NOTED. NO SOB NOTED. NO DISTRESS NOTED. NO IV ACCESS , MD AWARE. PATIENT ABLE TO MAKE NEEDS KNOWN. ALL SAFETY MEASURES IN PLACE. BED LOCKED IN THE LOWEST POSITION. CALL LIGHT AND TABLE IN EASY REACH. WILL CONTINUE TO MONITOR.
[2022-05-24] MEDS: PANTOPRAZOLE 40 MG TABLET.DR PO SCH (07:41)
[2022-05-24] MEDS: ENSURE ENLIVE CHOC 237 ML CAN PO SCH ×2 (07:42→16:34)
[2022-05-24 08:07] LABS: *ANA ANTI-CENTROMERE B AB <0.2 AI (0.0-0.9); *ANA ANTI-DNA(DS) AB, QN <1 IU/mL (0-9); *ANA ANTI-JO-1 <0.2 AI (0.0-0.9); *ANA ANTICHROMATIN ANTIBODY <0.2 AI (0.0-0.9); *ANA RNP ANTIBODIES <0.2 AI (0.0-0.9); *ANA SJOGREN'S ANTI-SS-A <0.2 AI (0.0-0.9); *ANA SJOGREN'S ANTI-SS-B <0.2 AI (0.0-0.9); *ANAANTI-SCLERODERMA-70 AB <0.2 AI (0.0-0.9); *ANASMITH AB <0.2 AI (0.0-0.9)
[2022-05-24] MEDS: DOCUSATE SODIUM 100 MG CAPSULE PO SCH (08:08)
[2022-05-24] MEDS: CHOLECALCIFEROL 1,000 UNIT TABLET (VIT D3) PO SCH (08:08)
[2022-05-24 08:09] VITALS: BP 125/74
[2022-05-24] MEDS: POTASSIUM CHLORIDE 20 MEQ TAB.PRT.SR PO SCH (08:09)
[2022-05-24] MEDS: MULTIVIT W/MINERALS 1 TAB TABLET PO SCH (08:09)
[2022-05-24] MEDS: VENLAFAXINE XR 75 MG CAP.SR.24H PO SCH (08:09)
[2022-05-24] MEDS: MORPHINE SULFATE SR 15 MG TABLET.SA PO SCH ×3 (08:09→16:24)
[2022-05-24] MEDS: LABETALOL HCL (100MG) 100 MG TABLET PO SCH ×2 (09:00→16:34)
[2022-05-24] MEDS: NICOTINE PATCH (14MG) 14 MG PATCH.TD24 TD SCH (09:00)
[2022-05-24] MEDS: HYDROCHLOROTHIAZIDE 25 MG TABLET PO SCH (09:00)
[2022-05-24] MEDS: POLYETHYLENE GLYCOL 3350 17 GM POWD.PACK PO SCH (09:00)
--- NOTE | 2022-05-24 10:33 | NUR ---
SS note: SS consult requested for pt. who stated he may want to leave AMA. [facility] who stated they are working on placement.SW met with pt. at beside. The pt. is alert& oriented x 4 and makes good eye contact. Pt. remained calm & cooperative throughout assessment. SW explained placement process and encourage pt. to stay at [facility] for possible placement. Pt. stated he discussed with MD and he will stay as he does not want to be homeless or risk negative health impacts. SW discussed new plan with patient's nurse who expressed understanding. SW will be available as needed.
[2022-05-24 16:25] VITALS: BP 133/73
--- NOTE | 2022-05-24 19:43 | NUR ---
MS RN CLOSING NOTES PATIENT AWAKE IN BED. PATIENT IS ALERT AND ORIENTED TIMES 4. NO PAIN NOTED. NO SOB NOTED. NO DISTRESS NOTED. NO IV ACCESS , MD AWARE. PATIENT ABLE TO MAKE NEEDS KNOWN.ALL DUE MEDS GIVEN ORDERED. ALL SAFETY MEASURES IN PLACE. BED LOCKED IN THE LOWEST POSITION. CALL LIGHT AND TABLE IN EASY REACH. WILL ENDORSE FOR MONIQUE.
[2022-05-24] MEDS: ATORVASTATIN 40 MG TABLET PO SCH (21:09)
[2022-05-24] MEDS: TERAZOSIN HCL 1 MG CAPSULE PO SCH (21:09)
[2022-05-24 22:42] VITALS: BP 144/92
[2022-05-25] MEDS: HYDROCODONE/APAP 10/325MG TABLET PO PRN ×2 (00:12→21:55)
--- NOTE | 2022-05-25 06:26 | NUR ---
MS RN CLOSING NOTES PATIENT IN BED SLEEPING.ON RM AIR LYNNE WELL.. NO SOB/ DISTRESS NOTED.ALL DUE MEDS GIVEN ORDER,PATIENT ABLE TO MAKE NEEDS KNOWN.ALL NEEDS ATTENDED. ALL SAFETY MEASURES IN PLACE. BED LOCKED IN THE LOWEST POSITION. CALL LIGHT AND TABLE IN EASY REACH. WILL ENDORSED TO NEXT SHIFT.
--- NOTE | 2022-05-25 07:05 | NUR ---
MS RN OPENING NOTES RECEIVED PATIENT AWAKE IN BED. PATIENT IS ALERT AND ORIENTED TIMES 4. NO PAIN NOTED. NO SOB NOTED. NO DISTRESS NOTED. ON ROOM AIR AND TOLERATING NO IV ACCESS , MD AWARE. PATIENT ABLE TO MAKE NEEDS KNOWN. USES WHEELCHAIR AND CANE FOR AMBULATION. WAITING FOR FACILITY PLACEMENT TO BE TRANSFERRED. ALL SAFETY MEASURES IN PLACE. BED LOCKED IN THE LOWEST POSITION. SIDE RAILS UP TIMES 2. CALL LIGHT AND TABLE IN EASY REACH. WILL CONTINUE TO MONITOR.
[2022-05-25] MEDS: PANTOPRAZOLE 40 MG TABLET.DR PO SCH (07:45)
[2022-05-25] MEDS: ENSURE ENLIVE CHOC 237 ML CAN PO SCH ×2 (07:54→16:40)
[2022-05-25 08:00] VITALS: BP 119/72
[2022-05-25] MEDS: DOCUSATE SODIUM 100 MG CAPSULE PO SCH (08:24)
[2022-05-25] MEDS: MULTIVIT W/MINERALS 1 TAB TABLET PO SCH (08:24)
[2022-05-25] MEDS: NICOTINE PATCH (14MG) 14 MG PATCH.TD24 TD SCH (08:25)
[2022-05-25] MEDS: POTASSIUM CHLORIDE 20 MEQ TAB.PRT.SR PO SCH (08:25)
[2022-05-25] MEDS: VENLAFAXINE XR 75 MG CAP.SR.24H PO SCH (08:25)
[2022-05-25] MEDS: MORPHINE SULFATE SR 15 MG TABLET.SA PO SCH ×3 (08:25→16:37)
[2022-05-25] MEDS: CHOLECALCIFEROL 1,000 UNIT TABLET (VIT D3) PO SCH (08:25)
[2022-05-25] MEDS: LABETALOL HCL (100MG) 100 MG TABLET PO SCH ×2 (08:26→16:38)
[2022-05-25] MEDS: HYDROCHLOROTHIAZIDE 25 MG TABLET PO SCH (08:26)
[2022-05-25] MEDS: POLYETHYLENE GLYCOL 3350 17 GM POWD.PACK PO SCH (08:56)
--- NOTE | 2022-05-25 08:57 | NUR ---
RN NOTES PATIENT REFUSED MIRALAX 17 MG. EXPLAINED THE BENEFITS OF THE MEDICATION , PATIENT STILL REFUSING.
[2022-05-25 16:00] VITALS: BP 133/79
--- NOTE | 2022-05-25 19:38 | NUR ---
RN OPENING NOTE PATIENT IS AWAKE IN BED. A/OX4. NO S/S OF DISTRESS, BREATHING W/O DIFFICULTY ON ROOM AIR. NO IV ACCESS - YOVANI SCOTT, NOTIFIED PER DAY SHIFT NURSE ENDORSEMENT. SAFETY MEASURES IN PLACE: BED LOCKED AND AT LOWEST POSITION, RAILS UP X2, CALL BEAL WITHIN REACH. WILL CONTINUE TO MONITOR PATIENT.
[2022-05-25 20:00] VITALS: BP 130/77
[2022-05-25] MEDS: ATORVASTATIN 40 MG TABLET PO SCH (21:53)
[2022-05-25] MEDS: TERAZOSIN HCL 1 MG CAPSULE PO SCH (21:55)
[2022-05-26] MEDS: HYDROCODONE/APAP 10/325MG TABLET PO PRN ×2 (03:23→19:51)
--- NOTE | 2022-05-26 06:38 | NUR ---
RN CLOSING NOTE PATIENT AWAKE IN BED. A/OX4. NO S/S OF DISTRESS, BREATHING W/O DIFFICULTY ON ROOM AIR. NO IV ACCESS NOTED IN MY OPENING NOTE FOR THIS SHIFT. SAFETY MEASURES IN PLACE: BED LOCKED AND AT LOWEST POSITION, RAILS UP X2, CALL BEAL WITHIN REACH. WILL ENDORSE TO NEXT SHIFT FOR MONIQUE.
--- NOTE | 2022-05-26 07:59 | NUR ---
RN OPENING NOTE PATIENT RECEIVED IN BED, AO X 4, ABLE TO RESPONDS ALL STIMULI. IN NO ACUTE DISTRESS NOTED. RESPIRATORY EVEN AND UNLABORED ON ROOM AIR. SKIN IS WARM TO TOUCH, KEEP CLEAN/DRY. KEPT ELEVATED HOB FOR ENSURE AIRWAY AND ASPIRATION PRECAUTION, ALSO LOWEST POSITION OF THE BED, S/R UP X 3, BED ALARM IS ON AT ALL THE TIMES. ALL SAFETY PRECAUTION APPLIED. CALL LIGHT WITHIN REACH, WILL CONTINUE TO MONITOR.
[2022-05-26 08:00] VITALS: BP 124/79
[2022-05-26 08:08] LABS: BASOPHILS % (AUTO) 0.5 % (0.0-2.0); HEMATOCRIT 36 % (39-51); HEMOGLOBIN 12.4 g/dL (13.5-17.5); LYMPHOCYTES # (AUTO) 1.1 K/uL (0.8-4.8); LYMPHOCYTES % (AUTO) 20.5 % (20.0-44.0); MEAN CORPUSCULAR HGB CONC 34 g/dl (31.0-36.0); MEAN CORPUSCULAR VOLUME 87 fL (80-96); MONOCYTES # (AUTO) 0.6 K/uL (0.1-1.30); MONOCYTES % (AUTO) 10.1 % (2.0-12.0); NEUTROPHILS # (AUTO) 3.6 K/uL (1.8-8.9); NEUTROPHILS % (AUTO) 64.9 % (43.0-81.0); PLATELET COUNT (AUTO) 218 K/uL (150-450); RED BLOOD CELL COUNT(AUTO) 4.21 MIL/uL (4.5-6.0); WHITE BLOOD COUNT (AUTO) 5.5 K/uL (4.3-11.0)
[2022-05-26] MEDS: PANTOPRAZOLE 40 MG TABLET.DR PO SCH (08:26)
[2022-05-26] MEDS: ENSURE ENLIVE CHOC 237 ML CAN PO SCH ×2 (08:26→17:01)
[2022-05-26] MEDS: POTASSIUM CHLORIDE 20 MEQ TAB.PRT.SR PO SCH (08:26)
[2022-05-26] MEDS: VENLAFAXINE XR 75 MG CAP.SR.24H PO SCH (08:26)
[2022-05-26] MEDS: NICOTINE PATCH (14MG) 14 MG PATCH.TD24 TD SCH (08:26)
[2022-05-26] MEDS: MULTIVIT W/MINERALS 1 TAB TABLET PO SCH (08:26)
[2022-05-26] MEDS: MORPHINE SULFATE SR 15 MG TABLET.SA PO SCH ×3 (08:27→17:01)
[2022-05-26] MEDS: CHOLECALCIFEROL 1,000 UNIT TABLET (VIT D3) PO SCH (08:27)
[2022-05-26] MEDS: POLYETHYLENE GLYCOL 3350 17 GM POWD.PACK PO SCH (08:29)
[2022-05-26] MEDS: HYDROCHLOROTHIAZIDE 25 MG TABLET PO SCH (08:29)
[2022-05-26] MEDS: DOCUSATE SODIUM 100 MG CAPSULE PO SCH (08:30)
[2022-05-26] MEDS: LABETALOL HCL (100MG) 100 MG TABLET PO SCH ×2 (08:35→17:01)
[2022-05-26 15:59] VITALS: BP 122/72
--- NOTE | 2022-05-26 18:00 | NUR ---
RN CLOSING NOTE PATIENT IN WHEEL CHAIR WATCHING TV. IN NO ACUTE DISTRESS NOTED. RESPIRATORY EVEN AND UNLABORED ON ROOM AIR. SKIN IS WARM TO TOUCH, KEEP CLEAN/DRY. KEPT ELEVATED HOB FOR ENSURE AIRWAY AND ASPIRATION PRECAUTION, BED IN LOWEST POSITION AND LOCK. BED ALARM IS ON AT ALL THE TIMES, WHILE PATIENT IS IN THE BED. ALL SAFETY MEASURED IN PLACED. CALL LIGHT WITHIN REACH, WILL ENDORSED TO NEXT SHIFT.
--- NOTE | 2022-05-26 19:20 | NUR ---
MS/RN OPENING NOTE RECEIVED PATIENT UP IN WHEELCHAIR. ALERT AND ORIENTED X 4. ABLE TO MAKE NEEDS KNOWN. DENIES PAIN AT THIS TIME. CONTINUES ON ROOM AIR WITH NO S/SX OF RESPIRATORY DISTRESS NOTED. NO IV ACCESS AT THIS TIME - MD AWARE. CONTINUES ON REGULAR DIET WITH NO S/SX OF ASPIRATION NOTED. PATIENT IS ABLE TO TRANSFER FROM BED TO WHEELCHAIR INDEPENDENTLY. CALL LIGHT WITHIN REACH. ASPIRATION, FALL AND SAFETY PRECAUTIONS MAINTAINED. ALL NEEDS ATTENDED TO AT THIS TIME.
--- NOTE | 2022-05-26 19:55 | NUR ---
MS/RN NOTE PATIENT WITH C/O GENERALIZED PAIN - ADMINISTERED PRN NORCO PER MD ORDER.
[2022-05-26 20:00] VITALS: BP 102/69
[2022-05-26] MEDS: ATORVASTATIN 40 MG TABLET PO SCH (22:17)
[2022-05-26] MEDS: TERAZOSIN HCL 1 MG CAPSULE PO SCH (22:17)
[2022-05-27] MEDS: HYDROCODONE/APAP 10/325MG TABLET PO PRN ×2 (01:55→21:17)
--- NOTE | 2022-05-27 02:04 | NUR ---
MS/RN NOTE PATIENT WITH C/O BACK PAIN 05/16 - ADMINISTERED PRN NORCO PER MD ORDERS.
[2022-05-27 04:00] VITALS: BP 119/60
--- NOTE | 2022-05-27 06:20 | NUR ---
MS/RN CLOSING NOTE PATIENT CURRENTLY SITTING UP IN WHEELCHAIR. ALERT AND ORIENTED X 4. ABLE TO MAKE NEEDS KNOWN. DENIES PAIN AT THIS TIME. CONTINUES ON ROOM AIR WITH NO S/SX OF RESPIRATORY DISTRESS NOTED. NO IV ACCESS AT THIS TIME - MD AWARE. CONTINUES ON REGULAR DIET WITH NO S/SX OF ASPIRATION NOTED. PATIENT IS ABLE TO TRANSFER FROM BED TO WHEELCHAIR INDEPENDENTLY. CALL LIGHT WITHIN REACH. ASPIRATION, FALL AND SAFETY PRECAUTIONS MAINTAINED. ALL NEEDS ATTENDED TO AT THIS TIME. WILL ENDORSE PLAN OF CARE TO ONCOMING SHIFT RN.
--- NOTE | 2022-05-27 07:30 | NUR ---
RN OPENING NOTE PATIENT RECEIVED UP IN WHEELCHAIR. A/0 X4. NO S/SX OF DISTRESS OR SOB OBSERVED. NO C/O PAIN. PATIENT REMAINS WITH NO IV ACCESS; MD AWARE. ABLE TO VERBALIZE NEEDS. SAFETY MEASURES IN PLACE WITH BED IN LOWEST POSITION AND LOCKED. CALL LIGHT WITHIN REACH. WILL CONTINUE TO MONITOR.
[2022-05-27 08:00] VITALS: BP 102/65
[2022-05-27] MEDS: DOCUSATE SODIUM 100 MG CAPSULE PO SCH (08:29)
[2022-05-27] MEDS: POTASSIUM CHLORIDE 20 MEQ TAB.PRT.SR PO SCH (08:29)
[2022-05-27] MEDS: MULTIVIT W/MINERALS 1 TAB TABLET PO SCH (08:29)
[2022-05-27] MEDS: VENLAFAXINE XR 75 MG CAP.SR.24H PO SCH (08:29)
[2022-05-27] MEDS: PANTOPRAZOLE 40 MG TABLET.DR PO SCH (08:29)
[2022-05-27] MEDS: MORPHINE SULFATE SR 15 MG TABLET.SA PO SCH ×3 (08:30→17:20)
[2022-05-27] MEDS: HYDROCHLOROTHIAZIDE 25 MG TABLET PO SCH (08:30)
[2022-05-27] MEDS: POLYETHYLENE GLYCOL 3350 17 GM POWD.PACK PO SCH (08:31)
[2022-05-27] MEDS: NICOTINE PATCH (14MG) 14 MG PATCH.TD24 TD SCH (08:31)
[2022-05-27] MEDS: ENSURE ENLIVE CHOC 237 ML CAN PO SCH ×2 (08:31→17:21)
[2022-05-27] MEDS: LABETALOL HCL (100MG) 100 MG TABLET PO SCH ×2 (08:32→17:21)
[2022-05-27] MEDS: CHOLECALCIFEROL 1,000 UNIT TABLET (VIT D3) PO SCH (08:35)
[2022-05-27 16:00] VITALS: BP 110/54
--- NOTE | 2022-05-27 18:33 | NUR ---
RN CLOSING NOTE PATIENT A/OX4. UP IN WHEELCHAIR THROUGHOUT UNIT ON SHIFT. ABLE TO TRANSFER TO/FROM WHEELCHAIR, BED AND BATHROOM WITHOUT ASSIST. REMAINS WITHOUT IV ACCESS. MD AWARE. COMPLIANT WITH ALL MEDICATIONS AND CARE GIVEN. NO PRN MEDICATION GIVEN OR REQUESTED. NO S/SX OF DISTRESS ON SHIFT. REMAINED PLEASANT AND COOPERATIVE. SAFETY MEASURES REMAIN IN PLACE WITH BED IN LOWEST POSITION AND LOCKED. SIDERAIL UP X2. CALL LIGHT WITHIN REACH. WILL CONTINUE TO MONITOR.
--- NOTE | 2022-05-27 20:25 | NUR ---
MS RN OPENING NOTE PATIENT AWAKE AMBULATING ON UNIT IN WHEELCHAIR, ALERT/ORIENTED X 4, PT ABLE TO MAKE NEEDS KNOWN. PATIENT STABLE ON RA, NO S/S OF DISTRESS OR SOB NOTED, BREATHING EVEN AND UNLABORED. NO IV ACCESS NOTED, MD AWARE PER DAY SHIFT NURSE. SAFETY MEASURES IN PLACE: CALL LIGHT WITHIN REACH, SIDE RAILS UP X 2, BED LOCKED IN LOWEST POSITION, PATIENT AMBULATORY WITH CANE AND WHEELCHAIR ABLE TO TRANSFER SAFELY WITHOUT HELP, PT HAS SMOKING PRIVILEGES WITH SUPER VISION PER DAY SHIFT NURSE, WAS TAKEN OUTSIDE TO SMOKE BY DIG[employer] SALES MANAGER AND RETURNED SAFELY. WILL CONTINUE TO MONITOR
[2022-05-27] MEDS: ATORVASTATIN 40 MG TABLET PO SCH (21:17)
[2022-05-27] MEDS: TERAZOSIN HCL 1 MG CAPSULE PO SCH (21:18)
[2022-05-28] MEDS: HYDROCODONE/APAP 10/325MG TABLET PO PRN (01:32)
--- NOTE | 2022-05-28 07:00 | NUR ---
MS RN CLOSING NOTE PATIENT AWAKE, ALERT/ORIENTED X 4, PT ABLE TO MAKE NEEDS KNOWN. PATIENT STABLE ON RA, NO S/S OF DISTRESS OR SOB NOTED, BREATHING EVEN AND UNLABORED. NO IV ACCESS NOTED, MD AWARE PER DAY SHIFT NURSE. MEDICATIONS GIVEN ORDERED, PT NEEDS MET THROUGHOUT SHIFT. PATIENT TOOK SHOWER LAST NIGHT. SAFETY MEASURES IN PLACE: CALL LIGHT WITHIN REACH, SIDE RAILS UP X 2, BED LOCKED IN LOWEST POSITION, PATIENT AMBULATORY WITH CANE AND WHEELCHAIR, ABLE TO TRANSFER SAFELY ON HIS OWN. PT HAS SMOKING PRIVILEGES WITH SUPER VISION PER DAY SHIFT NURSE. WILL ENDORSE TO DAY SHIFT NURSE FOR CONTINUITY OF CARE
--- NOTE | 2022-05-28 07:20 | NUR ---
ms rn received patient in his wheelchair, roaming at the [address], alert,oriented x4,not inany form of distress, respirations even and unlabored,no sob noted, lungs are clear,abdomen soft,positive bowel sounds, denies pain at this time, will monitor patient.
[2022-05-28] MEDS: ENSURE ENLIVE CHOC 237 ML CAN PO SCH (08:00)
[2022-05-28] MEDS: PANTOPRAZOLE 40 MG TABLET.DR PO SCH (08:01)
[2022-05-28] MEDS: POLYETHYLENE GLYCOL 3350 17 GM POWD.PACK PO SCH (09:00)
[2022-05-28] MEDS: LABETALOL HCL (100MG) 100 MG TABLET PO SCH (09:00)
[2022-05-28] MEDS: NICOTINE PATCH (14MG) 14 MG PATCH.TD24 TD SCH (09:00)
[2022-05-28] MEDS: VENLAFAXINE XR 75 MG CAP.SR.24H PO SCH (09:00)
--- NOTE | 2022-05-28 09:30 | NUR ---
ms rn' breakfast served,due meds given, tolerated well.
[2022-05-28 09:41] VITALS: BP 121/70
[2022-05-28] MEDS: HYDROCHLOROTHIAZIDE 25 MG TABLET PO SCH (09:41)
[2022-05-28] MEDS: MULTIVIT W/MINERALS 1 TAB TABLET PO SCH (09:41)
[2022-05-28] MEDS: DOCUSATE SODIUM 100 MG CAPSULE PO SCH (09:41)
[2022-05-28] MEDS: POTASSIUM CHLORIDE 20 MEQ TAB.PRT.SR PO SCH (09:41)
[2022-05-28] MEDS: MORPHINE SULFATE SR 15 MG TABLET.SA PO SCH (09:41)
[2022-05-28] MEDS: CHOLECALCIFEROL 1,000 UNIT TABLET (VIT D3) PO SCH (09:42)
--- NOTE | 2022-05-28 10:45 | NUR ---
ms rn patient discharge to home, discharge instructions given and understood.
== END 2022-05-28 11:54 | disposition home or self-care (01) | DRG 347 ==
LOC: MED 23:15
PROVIDERS: ADMIT Student in an Organized Health Care Education/Training Program; ATTEND Internal Medicine
DX: M48.061 Spinal stenosis, lumbar region without neurogenic claudication (principal); N17.0 Acute kidney failure with tubular necrosis; C79.51 Secondary malignant neoplasm of bone; C80.1 Malignant (primary) neoplasm, unspecified; E78.5 Hyperlipidemia, unspecified; D64.9 Anemia, unspecified; G89.3 Neoplasm related pain (acute) (chronic); E87.6 Hypokalemia; J44.9 Chronic obstructive pulmonary disease, unspecified; Z92.3 Personal history of irradiation; Z20.822 Contact with and (suspected) exposure to COVID-19; I10 Essential (primary) hypertension; Z59.00 Homelessness unspecified; Z72.0 Tobacco use; F11.20 Opioid dependence, uncomplicated; K82.8 Other specified diseases of gallbladder; N40.0 Benign prostatic hyperplasia without lower urinary tract symptoms; F19.10 Other psychoactive substance abuse, uncomplicated; Z79.51 Long term (current) use of inhaled steroids; Z79.899 Other long term (current) drug therapy
CPT/HCPCS: 36415; 71260-TC; 72157-TC; 72158-TC; 80048-TC; 80061-TC; 82378; 82607-TC; 82728-TC; 82784; 83540-TC; 83735-TC; 84100-TC; 84155; 84165; 84443-TC; 85025-TC; 86140-TC; 86225; 86235; 86334; 86431-TC; 86706; 86803; 87340; 97112-TC; 97116-TC; 97530-TC; A9575; G0378; J3490; J7050; Q9967